=== PATIENT | male | born 1985 | race Caucasian/White ===

== ENCOUNTER 2021-04-07 18:27 | Emergency (ER) | payer OTHER ==
[~2021-04-07] VITALS: Ht 185.4 cm; Wt 79.4 kg
[2021-04-07 19:11] LABS: ABSOLUTE LYMPHOCYTES 0.5 thou/uL (0.8-5.3); ABSOLUTE MONOCYTES 0.3 thou/uL (0.0-1.2); ABSOLUTE NEUTROPHILS 2.1 thou/uL (1.6-8.1); BASOPHILS 0.4 %; EOSINOPHILS 0.8 %; HEMATOCRIT 44.3 % (42.0-52.0); HEMOGLOBIN 15.4 gm/dL (14.0-18.0); LYMPHOCYTES 17.7 %; MCH 29.2 pg (26.0-34.0); MCHC 34.8 g/dL (28.0-37.0); MONOCYTES 10.5 %; MPV 8.4 fl. (7.2-11.1); NUCLEATED RBCS 0 /100WBC; PLATELET COUNT* 185 thou/uL (150-400); POLYS 70.6 %; RBC 5.27 mil/uL (4.50-6.00); RDW-CV 13.1 % (10.5-14.5); WBC 2.9 thou/uL (4.0-11.0)
[2021-04-07 19:17] LABS: CALCIUM 8.5 mg/dL (8.5-10.1)
[2021-04-07 19:22] LABS: ALBUMIN 3.9 g/dL (3.4-5.0); TOTAL BILIRUBIN 0.5 mg/dL (<0.1-1.0); TOTAL PROTEIN 7.7 g/dL (6.4-8.2)
[2021-04-07] MEDS ORDERED: ONDANSETRON ODT4 MG PO (19:37)
[2021-04-07 20:10] VITALS: BP 110/64
== END 2021-04-07 20:11 | disposition home or self-care (01) ==
LOC: M.ERS 18:27
PROVIDERS: Physician Assistant
DX: U07.1 COVID-19 (principal); Z91.041 Radiographic dye allergy status; Z91.013 Allergy to seafood